=== PATIENT | female | born 1990 | race Caucasian/White ===

== ENCOUNTER 2022-12-23 21:21 | Emergency (ER) | payer OTHER ==
[~2022-12-23] VITALS: Ht 170.2 cm; Wt 59.0 kg
[2022-12-23 21:33] VITALS: BP 124/78
[2022-12-24] MEDS ORDERED: NAPR500T31 PO (07:54)
[2022-12-24] MEDS ORDERED: AMOX500T86 PO (07:54)
== END 2022-12-24 02:40 | disposition left against medical advice (07) ==
LOC: ER 21:21
DX: S41.152A Open bite of left upper arm, initial encounter (principal); Z53.21 Procedure and treatment not carried out due to patient leaving prior to being seen by health care provider; W54.0XXA Bitten by dog, initial encounter; Y93.89 Activity, other specified; Y92.89 Other specified places as the place of occurrence of the external cause; Y99.8 Other external cause status
CPT/HCPCS: 73110

== ENCOUNTER 2022-12-24 06:51 | Emergency (ER) | payer OTHER ==
[~2022-12-24] VITALS: Ht 170.2 cm; Wt 59.0 kg
[2022-12-24 07:24] VITALS: BP 167/93
[2022-12-24] MEDS ORDERED: LIDOCAINE 1% HCL (LOCAL ANESTH.) INJ 20ML MDV IJ ONE (07:30)
[2022-12-24] MEDS ORDERED: TETANUS-DIPTH-ACEL PERTUSSIS 0.5ML SYR Tdap IM ONE (07:30)
[2022-12-24] MEDS ORDERED: NAPR500T31 PO (07:54)
[2022-12-24] MEDS ORDERED: AMOX500T86 PO (07:54)
== END 2022-12-24 08:04 | disposition home or self-care (01) ==
LOC: ER 06:51
DX: S61.512A Laceration without foreign body of left wrist, initial encounter (principal); S61.552A Open bite of left wrist, initial encounter; F41.9 Anxiety disorder, unspecified; D21.9 Benign neoplasm of connective and other soft tissue, unspecified; Z88.1 Allergy status to other antibiotic agents; W54.0XXA Bitten by dog, initial encounter; Y93.89 Activity, other specified; Y92.89 Other specified places as the place of occurrence of the external cause; Y99.8 Other external cause status
CPT/HCPCS: 12002; 90471; 90715; 99283; J2001